=== PATIENT | female | born 1975 | race Caucasian/White ===

== ENCOUNTER 2020-10-21 11:51 | Emergency (ER) | payer OTHER ==
[~2020-10-21 11:51] MED LIST: CYCLOBENZAPRINE10 MG PO; LIBRIUM CAP 2525 MG PO; MEDROL DOSEPAK 24 MG PO; NORCO 5-325 TA1 EACH PO; NORCO 7.5-3251 EACH PO
[2020-10-21 13:03] LABS: HEMOGLOBIN 12.6 gm/dl (12.3-15.3); RED BLOOD COUNT 4.28 M/UL (4.00-5.10)
[2020-10-21 13:26] LABS: BUN/CREATININE RATIO 17 (0-10)
[2020-10-21] MEDS ORDERED: MACROBID 100 M100 M1 PO (14:36)
== END 2020-10-21 15:16 | disposition home or self-care (01) ==
LOC: ER1 11:51
PROVIDERS: Physician Assistant
DX: N90.89 Other specified noninflammatory disorders of vulva and perineum (principal); N39.0 Urinary tract infection, site not specified; Z79.899 Other long term (current) drug therapy
CPT/HCPCS: 80053; 81001; 85025; 87077; 87086; 87186; 87252; 96374; 96375; 99283; J1885; J2405